=== PATIENT | male | born 1990 | race Caucasian/White ===

== ENCOUNTER 2017-07-17 11:34 | Emergency (ER) | payer MEDICAID, OTHER ==
[~2017-07-17] VITALS: Ht 170.2 cm; Wt 87.0 kg
[~2017-07-17 11:34] MED LIST: FAMO-96 PO; HYDR-3498 PO; IBUP-1542 PO; LORA-441 PO; OMEP20CA9 PO; ZOF8 PO
[2017-07-17 11:37] VITALS: Ht 170.2 cm; Wt 87.0 kg
--- NOTE | 2017-07-17 11:58 | ERA ---
ER Documentation Chief Complaint Date/Time DATE: 07/17/17 TIME: 11:55 Chief Complaint mid abd pain with vomiting today HPI 26-year-old male with a past medical history of alcohol abuse 3-4 years that ended 1 year ago and history of gastritis, presents with chief complaint of intermittent dull like, left lower quadrant abdominal discomfort. Describes the pain as crampy and comes and goes without known pattern. Has had similar symptoms in the past of some spontaneously resolved. States has been constipated lately, and the pain is relieved with constipation. Denies noticing any difference in characteristics including color of the stools. Denies fever, chills, meningismus, cough, nausea, vomiting, diarrhea, change in diet. ROS All systems reviewed and are negative except as per history of present illness. Medications Home Meds Active Scripts Ibuprofen* (Motrin*) 600 Mg Tab, 600 MG PO Q6, #30 TAB Prov:DANA ARMIJO 03/06/16 Hydrocodone Bit-Acetaminophen* ([place]*) 5-325 Mg Tab, 1 TAB PO Q4H Y for PAIN, # 12 TAB Prov:SHANNAN SORIA PA-C 10/15/15 Omeprazole* (Prilosec*) 20 Mg Capsule.dr, 20 MG PO DAILY, #30 CAP Prov:NAMRATA RODRIGUES PA-C 08/31/15 Famotidine* (Pepcid*) 20 Mg Tablet, 20 MG PO AM for 10 Days, TAB Prov:NAMRATA RODRIGUES PA-C 08/31/15 Ondansetron Hcl* (Zofran* ODT) 8 mg -ODT Tab.disper, 8 MG PO Q6 Y for NAUSEA AND /OR VOMITING, #20 TAB Prov:NAMRATA RODRIGUES PA-C 08/31/15 Lorazepam* (Ativan*) 0.5 Mg Tablet, 0.5 MG PO Q8 for 3 Days Prov:NAMRATA RODRIGUES PA-C 08/31/15 Reported Medications [None] No Conflict Check 05/24/11 Allergies Allergies: Coded Allergies: No Known Drug Allergy (Verified Allergy, Mild, 01/18/15) PMhx/Soc History of Surgery: No Anesthesia Reaction: No Hx Neurological Disorder: No Hx Respiratory Disorders: No Hx Cardiac Disorders: No Hx Psychiatric Problems: No Hx Miscellaneous Medical Probl: No Hx Alcohol Use: Yes (2-3 BEERS (24 OZ) DAILY) Hx Substance Use: Yes (marijuana) Hx Tobacco Use: No Physical Exam Vitals Vital Signs Date Time Temp Pulse Resp B/P Pulse Ox O2 Delivery O2 Flow Rate FiO2 07/17/17 11:37 98.1 87 18 156/76 98 Physical Exam Const: Well-appearing. No acute distress. Head: Normocephalic, Atraumatic. Eyes: Non-injected; No discharge. EOMI and CATHRYN bilaterally. Ears: Normal External Ears, EACs clear, TM normal bilaterally without erythema. Nose: Normal external nose; no discharge, or sinus tenderness. Oral: No oral edema visualized. Mucous membranes moist and pink. Neck: No cervical lymphadenopathy, or masses palpated. Supple ~ No meningismus. Pulm: Good air movement in upper and lower respiratory tracts. Clear to auscultation bilaterally. No dyspnea or stridor. Cardio: Regular rate and rhythm; No murmurs, gallops or rubs auscultated. Radia pulses 2+ bilaterally. No cyanosis noted. Capillary refill less than 2 seconds. Abd: Normal bowel sounds. Soft, non tender, non distended. MS: Normal motor strength, normal tone with gross examination. Skin: No petechiae or rashes. Good turgor. Back: No midline, flank or CVA tenderness. Ext: No edema. Normal movement of all extremities grossly observed. Neur: Neurovascularly intact bilaterally. Psych: Normal Mood and Affect. Procedures/MDM Overweight, well-appearing 26-year-old male in no acute distress presenting with a chief complaint of left lower quadrant abdominal discomfort as described in history and physical examination. At this time I very little suspicion for pancreatitis, cholangitis, AAA, dissection, ischemia, mechanical obstruction, acute invasive infectious diarrhea, or other serious bacterial infection. At this time I most likely diagnosis is abdominal pain of unknown etiology versus irritable bowel syndrome. Patient will be discharged with discharge instructions and return precautions. Departure Diagnosis: Primary Impression: Abdominal pain Qualified Code: R10.32 - Left lower quadrant pain Additional Impressions: IBS (irritable bowel syndrome) Qualified Code: K58.1 - Irritable bowel syndrome with constipation Gastritis Qualified Code: K29.70 - Gastritis without bleeding, unspecified chronicity, unspecified gastritis type Condition: Stable Patient Instructions: Irritable Bowel Syndrome Ref[facility] Usted se rivera hecho un examen mdico de control que le indica que no est en juan manuel condicin que requiera tratamiento urgente en el Departamento de Emergencia. Un estudio ms profundo y el tratamiento de stern condicin pueden esperar sin ningn riesgo hasta que usted sea atendida/o en el consultorio de stern mdico o juan manuel cl kofi. Es responsabilidad suya arreglar juan manuel graham para el seguimiento del jessica. MANEJO DE CONDICIONES NO URGENTES EN EL FUTURO 1) Si usted tiene un mdico de atencin primaria: Usted debera llamar a stern mdico de atencin primaria antes de venir al departamento de emergencia. Despus de las horas de consultorio, stern doctor o stern asociado/a est disponible por telfono. El mdico o enfermero de alayna en el servicio telefnico puede asesorarle por juhi medio para atender el problema, o jessica contrario se puede programar juan manuel graham. 2) Si usted no tiene un mdico de atencin primaria: Llame al mdico o clnica de referencia que aparece abajo joleen las horas de consultorio para hacer juan manuel graham para que le vean. CLINICAS: [facility] [phone] [facility] [phone] [facility] [phone] [facility] [phone] [facility] [phone] [facility]. [phone] [address] [facility] [facility] YOU HAVE RECEIVED A MEDICAL SCREENING EXAM AND THE RESULTS INDICATE THAT YOU DO NOT HAVE A CONDITION THAT REQUIRES URGENT TREATMENT IN THE EMERGENCY DEPARTMENT. FURTHER EVALUATION AND TREATMENT OF YOUR CONDITION CAN WAIT UNTIL YOU ARE SEEN IN YOUR DOCTORS OFFICE WITHIN THE NEXT 1-2 DAYS. IT IS YOUR RESPONSIBILITY TO MAKE AN APPOINTMENT FOR FOLOW-UP CARE. IF YOU HAVE A PRIMARY DOCTOR --you should call your primary doctor and schedule an appointment IF YOU DO NOT HAVE A PRIMARY DOCTOR YOU CAN CALL OUR PHYSICIAN REFERRAL HOTLINE AT IF YOU CAN NOT AFFORD TO SEE A PHYSICIAN YOU CAN CHOSE FROM THE FOLLOWING [facility] CL[facility] [id number] [facility] [id number] [facility] [facility] [address] [facility] [address] [facility] [facility] [address] [facility]. [facility]. [address] [place] Additional Instructions: Follow up with your PCP within the next 1-3 days for a more thorough evaluation and a possible referral to a specialist. Return the the emergency department immediately if symptoms worsen or change. If you have any questions regarding medications, ask your pharmacist or us before you leave. If any adverse reactions occur while taking your medications, discontinue the treatment and return to the emergency department immediately. Take your medications as directed, and complete the entire course of treatment. KAMRON KWOK PA-C Jul 17, 2017 11:53
== END 2017-07-17 12:55 | disposition home or self-care (01) ==
LOC: FTE 11:34
DX: R10.32 Left lower quadrant pain (principal); K58.1 Irritable bowel syndrome with constipation; K29.70 Gastritis, unspecified, without bleeding
CPT/HCPCS: 99282